=== PATIENT | female | born 2005 | race Caucasian/White ===

== ENCOUNTER 2025-03-05 12:21 | Emergency (ER) | payer OTHER ==
[~2025-03-05] VITALS: Ht 149.9 cm; Wt 69.9 kg
[~2025-03-05 12:21] MED LIST: HUMA100I3 SC; LANTINJ4 SC; NITR100C3 PO; ONDA-282 PO; PHEN-372 PO
[2025-03-05 13:04] LABS: KETONE, URINE AUTO RFX NEGATIVE (NEGATIVE); NITRITE, URINE AUTO RFX NEGATIVE (NEGATIVE); RBC, URINE AUTO RFX 1 /HPF (0-3); SQUAM EPITHELIAL CELL UR AURFX 11 /HPF (0-6)
[2025-03-05 13:06] LABS: LEUKOCYTE ESTERASE UR AUTO RFX 2+ (NEGATIVE); WBC, URINE AUTO RFX 12 /HPF (0-3)
[2025-03-05] MEDS ORDERED: PYRI1TAB5 PO (13:53)
[2025-03-05] MEDS ORDERED: MACR100C43 PO (13:53)
[2025-03-05 13:56] VITALS: BP 124/73; TEMP 98.5; O2SAT 99
== END 2025-03-05 13:58 | disposition home or self-care (01) ==
LOC: M ED 12:21
DX: N39.0 Urinary tract infection, site not specified (principal); E11.9 Type 2 diabetes mellitus without complications; Z79.4 Long term (current) use of insulin; Z88.2 Allergy status to sulfonamides